=== PATIENT | female | born 1990 | race Caucasian/White ===

== ENCOUNTER 2017-06-19 12:41 | Emergency (ER) | payer OTHER ==
[~2017-06-19] VITALS: Ht 175.3 cm; Wt 159.9 kg
[~2017-06-19 12:41] MED LIST: AMOXICILLI400 MG/5 M PO; ATIVAN0.5 M1 PO; FIORICET 50-301 EACH PO; HYDROCODON-ACE1 EAC7 PO; LAMICTAL ODT50 MG PO; MOTRIN800 MG PO; NO HOME MEDS; NOHOMEMEDS; SERTRALINE HCL50 MG PO; TOPAMAX100 MG PO; TORADOL10 MG PO; WELLBUTRIN XL150 MG PO; ZOFRAN ODT4 MG PO; Zofran PO
[2017-06-19] MEDS ORDERED: OMEPRAZOLE40 M1 PO (14:40)
[2017-06-19] MEDS ORDERED: PREDNISONE20 MG PO (15:39)
[2017-06-19] MEDS ORDERED: LIDODERM 5% P1 PATCH TD (15:39)
[2017-06-19] MEDS ORDERED: VALIUM5 MG PO (15:39)
[2017-06-19] MEDS ORDERED: MOTRIN800 MG PO (15:40)
[2017-06-19 16:10] VITALS: BP 151/102
== END 2017-06-19 16:11 | disposition home or self-care (01) ==
LOC: EME 12:41
DX: M54.12 Radiculopathy, cervical region (principal); M79.1 Myalgia; R19.7 Diarrhea, unspecified; R73.03 Prediabetes; K21.9 Gastro-esophageal reflux disease without esophagitis; F41.9 Anxiety disorder, unspecified; F32.9 Major depressive disorder, single episode, unspecified; Z85.850 Personal history of malignant neoplasm of thyroid; Z88.8 Allergy status to other drugs, medicaments and biological substances
CPT/HCPCS: 99281; 99284; J1885; J7512

== ENCOUNTER → 2017-11-08 17:31 | Emergency (ER) | payer OTHER ==
[~2017-11-08] VITALS: Ht 175.3 cm; Wt 162.1 kg
[~2017-11-08 17:31] MED LIST changes: +LIDODERM 5% P1 PATCH TD; +OMEPRAZOLE40 M1 PO; +PREDNISONE20 MG PO; +VALIUM5 MG PO
[2017-11-08 17:53] VITALS: BP 130/83
== END | disposition left against medical advice (07) ==
LOC: EME 17:31
DX: K92.0 Hematemesis (principal); Z53.21 Procedure and treatment not carried out due to patient leaving prior to being seen by health care provider

== ENCOUNTER 2018-02-24 14:59 | Emergency (ER) | payer OTHER ==
[~2018-02-24] VITALS: Ht 172.7 cm; Wt 159.0 kg
[2018-02-24 16:24] LABS: BASOPHIL (%) 0.2 % (0-1); EOSINOPHIL (%) 2.2 % (0-5); EOSINOPHIL COUNT 0.2 K/uL (0-0.3); HEMOGLOBIN 12.5 G/DL (11.9-15.5); IMMATURE GRANULOCYTE (%) 0.4 % (0.0-0.7); LYMPHOCYTE (%) 29.2 % (15-42); LYMPHOCYTE COUNT 2.4 K/uL (1.0-2.8); MCH 26.9 PG (29.0-34.0); MCHC 33.8 G/DL (30.0-36.0); MCV 79.7 FL (83-99); MONOCYTE (%) 4.4 % (3-12); MONOCYTE COUNT 0.4 K/uL (0-0.8); NEUTROPHIL (%) 63.6 % (45-76); NEUTROPHIL COUNT 5.3 K/uL (1.8-6.4); PLATELET COUNT 198 K/uL (156-360); RBC DIS.WIDTH-CV 13.9 % (11.8-14.6); RBC DIS.WIDTH-SD 39.9 % (39-53); RED BLOOD COUNT 4.64 M/uL (3.80-5.20); WHITE BLOOD COUNT 8.3 K/uL (4.1-10.2)
[2018-02-24 16:35] LABS: ALBUMIN 3.8 g/dL (3.2-4.8); CHLORIDE 106 mEq/L (99-109); POTASSIUM 3.8 mEq/L (3.7-5.4); SODIUM 139 mEq/L (136-147)
[2018-02-24 16:37] LABS: GLUCOSE 101 mg/dL (70-99)
[2018-02-24 16:38] LABS: TOTAL PROTEIN 7.1 g/dL (6.4-8.3)
[2018-02-24 16:39] LABS: TOTAL BILIRUBIN 0.3 mg/dL (0.0-1.0)
[2018-02-24 16:41] LABS: ALKALINE PHOSPHATASE 57 IU/L (3-129); CREATININE 0.7 mg/dL (0.6-1.3); GFR ESTIMATE (CALCULATED) > 59 mL/min/
[2018-02-24 16:42] LABS: UREA NITROGEN (BUN) 11 mg/dL (9-23)
[2018-02-24 16:43] LABS: AST (GOT) 14 IU/L (2-34)
[2018-02-24 16:44] LABS: ALT (GPT) 21 IU/L (3-49)
[2018-02-24 16:45] LABS: LIPASE 15 U/L (1.0-51.0)
[2018-02-24 18:07] LABS: APPEARANCE CLEAR ((CLEAR)); BILIRUBIN NEGATIVE; BLOOD NEGATIVE; COLOR YELLOW ((YELLOW)); GLUCOSE (STRIP) NEGATIVE; KETONES NEGATIVE; LEUKOCYTES NEGATIVE; NITRITE NEGATIVE; PROTEIN (STRIP) 30; SPECIFIC GRAVITY 1.029 (1.000-1.030); UROBILINOGEN 0.2 MG/DL (0.2-1.0)
[2018-02-24] MEDS ORDERED: FIORICET 50-301 EAC1 PO (20:47)
[2018-02-24] MEDS ORDERED: ZOFRAN4 MG PO (20:47)
[2018-02-24 21:15] VITALS: BP 125/73
== END 2018-02-24 21:16 | disposition home or self-care (01) ==
LOC: EME 14:59
PROVIDERS: Emergency Medicine
DX: G43.909 Migraine, unspecified, not intractable, without status migrainosus (principal); B34.9 Viral infection, unspecified; R10.31 Right lower quadrant pain; Z85.850 Personal history of malignant neoplasm of thyroid; E11.9 Type 2 diabetes mellitus without complications; F32.9 Major depressive disorder, single episode, unspecified; F41.9 Anxiety disorder, unspecified; K21.9 Gastro-esophageal reflux disease without esophagitis; Z88.8 Allergy status to other drugs, medicaments and biological substances
CPT/HCPCS: 70450; 74177; 80053; 81003; 81025; 83690; 85025; 99281; 99284; J1200; J2765; J3010; J7120